=== PATIENT | female | born 1965 | race Caucasian/White ===

== ENCOUNTER → 2017-03-04 | Outpatient (CLI) | payer OTHER | LOC: FIMAGING 15:40 | PROVIDERS: ATTEND Internal Medicine | DX: Z12.31 Encounter for screening mammogram for malignant neoplasm of breast (principal) | CPT/HCPCS: G0202 ==

== ENCOUNTER → 2018-03-10 | Outpatient (CLI) | payer OTHER | LOC: FIMAGING 07:55 | PROVIDERS: ATTEND Internal Medicine | DX: Z12.31 Encounter for screening mammogram for malignant neoplasm of breast (principal) ==